=== PATIENT | female | born 2005 | race Caucasian/White ===

== ENCOUNTER 2024-10-07 13:44 | Emergency (ER) | payer SELFPAY ==
[2024-10-07 13:50] VITALS: BP 121/79
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
== END 2024-10-07 18:36 | disposition home or self-care (01) ==
LOC: EMR 13:44
PROVIDERS: EMERGENCY PHYSICIAN Emergency Medicine; FAMILY PHYSICIAN Family Medicine
DX: S50.812A Abrasion of left forearm, initial encounter (principal); S80.212A Abrasion, left knee, initial encounter; R51.9 Headache, unspecified; V49.49XA Driver injured in collision with other motor vehicles in traffic accident, initial encounter
CPT/HCPCS: 99284; 70450; 73090; 73564